=== PATIENT | male | born 1980 | race Caucasian/White ===

== ENCOUNTER 2017-05-02 12:56 | Emergency (ER) | payer OTHER ==
[~2017-05-02] VITALS: Wt 122.0 kg
[~2017-05-02 12:56] MED LIST: HYDR-3498 PO; NAPR-260 PO
--- NOTE | 2017-05-02 17:12 | RADRPT ---
PROCEDURE: XR Right Humerus. CLINICAL INDICATION: Right arm pain. TECHNIQUE: AP and lateral views of the right humerus were performed. COMPARISON: None. FINDINGS: There is no fracture or dislocation. The soft tissues are normal. Articular surfaces are intact. There is no lytic or blastic lesion. There is no radiopaque foreign body. IMPRESSION: 1. Unremarkable images of the right humerus. RPTAT: QQ .Chet Ibarra MD, MD Date Time Electronically viewed and signed by .Chet Ibarra MD, on 05/02/2017 17:12 .R/
--- NOTE | 2017-05-02 17:16 | RADRPT ---
PROCEDURE: XR Right Shoulder. CLINICAL INDICATION: Right shoulder pain. TECHNIQUE: Three views. Frontal internal rotation, frontal external rotation, and scapular Y-view . COMPARISON: No prior study is available for comparison. FINDINGS: There is no fracture or dislocation. The soft tissues are normal. Articular surfaces are intact. There is no lytic or blastic lesion. There is no radiopaque foreign body. IMPRESSION: 1. Normal images of the right shoulder. RPTAT: QQ .Chet Ibarra MD, MD Date Time Electronically viewed and signed by .Chet Ibarra MD, MD on 05/02/2017 17:16 .R/
[2017-05-02] MEDS ORDERED: IBUP-1542 PO (17:20)
--- NOTE | 2017-05-02 17:28 | ERD ---
ER Documentation Chief Complaint Chief Complaint ON AND OFF RIGHT ARM PAIN, NO INJURY HPI Patient is a 37-year-old male who presents ED for concerns of right arm pain 2 weeks. Patient states this pain is intermittent in nature. Patient states pain started after he went on a trip to [facility]. Patient states he cannot lift his arm secondary to pain. Patient states he is able to lift it with assistance. Patient reports trying Tylenol for his symptoms. Patient denies any fevers, chills, nausea, vomiting, chest pain, shortness of breath or loss consciousness. Patient denies any trauma or falls. Patient denies any numbness or tingling. Patient is right-hand dominant. Patient denies any history of homicidal or suicidal ideations. ROS All systems reviewed and are negative except as per history of present illness. Medications Home Meds Active Scripts Ibuprofen* (Motrin*) 600 Mg Tab, 600 MG PO Q6, #30 TAB Prov:BRAVO MONTOYA PA-C 05/02/17 Naproxen* (Naprosyn*) 500 Mg Tablet, 500 MG PO BID Y for PAIN AND/OR INFLAMMATION, #30 TAB Prov:KEVIN GARZA PA-C 12/05/15 Hydrocodone Bit-Acetaminophen* ([place]*) 5-325 Mg Tab, 1 TAB PO Q6 Y for PAIN, # 7 TAB Prov:KEVIN GARZA PA-C 12/05/15 Allergies Allergies: Coded Allergies: No Known Allergy (Unverified , 12/05/15) PMhx/Soc History of Surgery: Yes (REMOVAL OF ABSCESS @ [facility] AREA) Hx Miscellaneous Medical Probl: Yes Hx Alcohol Use: Yes (DURING OCCASION) Hx Substance Use: No Hx Tobacco Use: Yes (USED TO SMOKE FOR 16 YEARS) Physical Exam Vitals Vital Signs Date Time Temp Pulse Resp B/P Pulse Ox O2 Delivery O2 Flow Rate FiO2 05/02/17 13:02 98.2 94 17 141/80 98 Physical Exam GENERAL: Well-developed, well-nourished male. Appears in no acute distress. HEAD: Normocephalic, atraumatic. EYES: Pupils are equally reactive bilaterally. EOMs grossly intact. No conjunctival erythema. NECK: Supple. No meningismus. Normal range of motion of the neck. LUNG: Clear to auscultation bilaterally. No rhonchi, wheezing, rales or coarse breath sounds. HEART: Regular rate and rhythm. No murmurs, rubs or gallops. EXTREMITIES: Equal pulses bilaterally. No peripheral clubbing, cyanosis or edema. No unilateral leg swelling. NEUROLOGIC: Alert and oriented. Moving bilateral lower extremities without any difficulty.. Normal speech. Steady gait. SKIN: Normal color. Warm and dry. No rashes or lesions. RIGHT UE: No obvious deformity, erythema, ecchymosis or swelling. Skin intact. No bursal swelling. Decrease active range of motion of the shoulder, normal passive range of motion of the shoulder. Normal range of motion of the elbow, wrist and all digits. Sensation intact to light touch. Neurovascularly intact. (Able to give thumbs up, make an ok sign, cross digits 2 and 3, thumb to pinky opposition. 2+ RP.) No snuffbox tenderness. PSYCH: Denies any suicidal or homocidal ideations. Procedures/MDM ED COURSE: The patient was stable throughout ED course. I kept the patient and/or family informed of laboratory and diagnostic imaging results throughout the ED course. . DIAGNOSTIC IMAGING: Read by radiologist. Patient: HARRY GAUTHIER : 1980 Age: 37 Sex: M MR #: [id number] DOS: 05/02/17 1548 Ordering MD: BRAVO MONTOYA PA-C Location: [facility] Room/Bed: PROCEDURE: XR Right Humerus. CLINICAL INDICATION: Right arm pain. TECHNIQUE: AP and lateral views of the right humerus were performed. COMPARISON: None. FINDINGS: There is no fracture or dislocation. The soft tissues are normal. Articular surfaces are intact. There is no lytic or blastic lesion. There is no radiopaque foreign body. IMPRESSION: 1. Unremarkable images of the right humerus. RPTAT: QQ .Chet Ibarra MD, Date Time Electronically viewed and signed by .Chet Ibarra MD, on 05/02/2017 17:12 .R/ CC: BRAVO MONTOYA PA-C Patient: HARRY GAUTHIER : 1980 Age: 37 Sex: M MR #: [id number] DOS: 05/02/17 1548 Ordering MD: BRAVO MONTOYA PA-C Location: [facility] Room/Bed: PROCEDURE: XR Right Shoulder. CLINICAL INDICATION: Right shoulder pain. TECHNIQUE: Three views. Frontal internal rotation, frontal external rotation , and scapular Y-view. COMPARISON: No prior study is available for comparison. FINDINGS: There is no fracture or dislocation. The soft tissues are normal. Articular surfaces are intact. There is no lytic or blastic lesion. There is no radiopaque foreign body. IMPRESSION: 1. Normal images of the right shoulder. RPTAT: QQ .Chet Ibarra MD, MD Date Time Electronically viewed and signed by .Chet Ibarra MD, on 05/02/2017 17:16 .R/ CC: BRAVO MONTOYA PA-C MEDICATIONS GIVEN: Ibuprofen MEDICAL DECISION MAKING: This is a 37-year-old male who presents ED for concerns of right shoulder pain and upper arm pain times the last 2 weeks. Patient states symptoms started after going to [facility]. Patient denies any falls or trauma.. Vital signs were reviewed. Patient is afebrile. Patient is not hypoxic. Imaging was unremarkable. Patient was advised that pain is likely musculoskeletal in nature. Patient was advised to follow-up with his primary care physician. At this time is low suspicion for fracture, dislocation, septic joint, gout, osteoarthritis. Unable to rule out any ligament or tendon injuries. Patient was advised to follow-up with his primary care physician. Patient may need MRI or may need to see an orthopedic coder on an outpatient basis if symptoms persist. PRESCRIPTIONS: Ibuprofen DISCHARGE: At this time, patient is stable for discharge and outpatient management. Patient was given a copy of all imaging studies obtained today. RICE therapy and ROM exercises were advised to avoid stiffness. I have instructed the patient to follow-up with his/her primary care physician in 1-2 days. I have discussed with the patient the possibility of needing to see an orthopedic coder for further workup and imaging if the pain persists. I have instructed the patient to promptly return to the ER for any new or worsening symptoms including increased pain, swelling, warmth, urinary incontinence, stool incontinence, weakness or numbness. The patient and/or family expressed understanding of and agreement with this plan. All questions were answered. Home care instructions were provided. Departure Diagnosis: Primary Impression: Pain in right upper arm Condition: Stable Patient Instructions: Shoulder Pain (Uncertain Cause) Referrals: COMMUNITY CLINICS YOU HAVE RECEIVED A MEDICAL SCREENING EXAM AND THE RESULTS INDICATE THAT YOU DO NOT HAVE A CONDITION THAT REQUIRES URGENT TREATMENT IN THE EMERGENCY DEPARTMENT. FURTHER EVALUATION AND TREATMENT OF YOUR CONDITION CAN WAIT UNTIL YOU ARE SEEN IN YOUR DOCTORS OFFICE WITHIN THE NEXT 1-2 DAYS. IT IS YOUR RESPONSIBILITY TO MAKE AN APPOINTMENT FOR FOLOW-UP CARE. IF YOU HAVE A PRIMARY DOCTOR --you should call your primary doctor and schedule an appointment IF YOU DO NOT HAVE A PRIMARY DOCTOR YOU CAN CALL OUR PHYSICIAN REFERRAL HOTLINE AT IF YOU CAN NOT AFFORD TO SEE A PHYSICIAN YOU CAN CHOSE FROM THE FOLLOWING [facility] [address] [facility]. [facility] [address] [facility]. [facility] [address] [facility] [facility] [address] [facility] [facility] [address] [facility]. [facility]. [address] [facility]. [facility] YOU HAVE RECEIVED A MEDICAL SCREENING EXAM AND THE RESULTS INDICATE THAT YOU DO NOT HAVE A CONDITION THAT REQUIRES URGENT TREATMENT IN THE EMERGENCY DEPARTMENT. FURTHER EVALUATION AND TREATMENT OF YOUR CONDITION CAN WAIT UNTIL YOU ARE SEEN IN YOUR DOCTORS OFFICE WITHIN THE NEXT 1-2 DAYS. IT IS YOUR RESPONSIBILITY TO MAKE AN APPOINTMENT FOR FOLOW-UP CARE. IF YOU HAVE A PRIMARY DOCTOR --you should call your primary doctor and schedule and appointment IF YOU DO NOT HAVE A PRIMARY DOCTOR YOU CAN CALL OUR PHYSICIAN REFERRAL HOTLINE AT . IF YOU CAN NOT AFFORD TO SEE A PHYSICIAN YOU CAN CHOSE FROM THE FOLLOWING [facility], [facility] INSTITUTIONS: [facility] [address] [place] [address] [facility] [address] [place] [address] [facility] [address] [place] [address] [facility] Hours: Mon-Fri 9:00 AM - 5:00 PM Additional Instructions: Call your primary care doctor TOMORROW for an appointment during the next 1-2 days.See the doctor sooner or return here if your condition worsens before your appointment time. BRAVO MONTOYA PA-C May 02, 2017 17:28
[2017-05-02] MEDS ORDERED: IBUPROFEN 600 MG TAB PO ONE (18:00)
== END 2017-05-02 18:13 | disposition home or self-care (01) ==
LOC: FTE 12:56
DX: M79.621 Pain in right upper arm (principal); Z87.891 Personal history of nicotine dependence
CPT/HCPCS: 73030; 73060; Z7502; Z7610